=== PATIENT | male | born 1960 | race Caucasian/White ===

== ENCOUNTER 2018-08-07 11:57 | Observation (INO) | payer BC ==
[2018-08-07] VITALS (9 sets, daily range): BP systolic 123–150; BP diastolic 54–76; PULSE 65–86; TEMP 97.7–98.1
[~2018-08-07] VITALS: Ht 180.3 cm; Wt 117.1 kg
[2018-08-07] MEDS ORDERED: PRINZIDE 12.5 M1 TA1 PO (12:20)
[2018-08-07] MEDS ORDERED: PROSCAR 5MG5 MG PO (12:21)
[2018-08-07] MEDS ORDERED: FLOMAX 0.40.4 MG/CAP PO (12:21)
[2018-08-07] MEDS ORDERED: CIPRO 500MG TA500 MG PO (12:21)
[2018-08-08 00:30] VITALS: BP 115/53; PULSE 60; TEMP 98.5
[2018-08-08 03:25] VITALS: BP 115/60; PULSE 54; TEMP 98.5
[2018-08-08 07:37] VITALS: BP 110/60; PULSE 50; TEMP 98.2
[2018-08-08 11:51] VITALS: BP 110/54; PULSE 59; TEMP 98.1
[2018-08-08 15:23] VITALS: BP 105/46; PULSE 61; TEMP 98.1
[2018-08-08 19:04] VITALS: BP 125/51; PULSE 67; TEMP 98.6
[2018-08-09 00:50] VITALS: BP 105/58; PULSE 59; TEMP 98.2
[2018-08-09 04:47] VITALS: BP 120/64; PULSE 52; TEMP 98.1
[2018-08-09 07:27] VITALS: BP 126/62; PULSE 53; TEMP 97.2
[2018-08-09 12:00] VITALS: BP 126/64; PULSE 62; TEMP 97.7
== END 2018-08-09 13:30 | disposition home or self-care (01) ==
LOC: SDCO 11:57 → JCC 16:39 → SDCO 08-08 01:44 → JCC 08-08 01:44 → SDCO 08-08 01:44 → JCC 08-09 13:30
DX: N41.1 Chronic prostatitis (principal); N40.1 Benign prostatic hyperplasia with lower urinary tract symptoms; R33.9 Retention of urine, unspecified; N21.0 Calculus in bladder; N13.30 Unspecified hydronephrosis; I10 Essential (primary) hypertension; E66.9 Obesity, unspecified; Z79.82 Long term (current) use of aspirin; Z87.891 Personal history of nicotine dependence; Z83.3 Family history of diabetes mellitus; Z82.49 Family history of ischemic heart disease and other diseases of the circulatory system
CPT/HCPCS: C1769; G0378; G0379; J0690; J1100; J2270; J2704; J3010; J7030; J7120; Q9967